=== PATIENT | female | born 1990 | race Caucasian/White ===

== ENCOUNTER 2017-12-29 08:23 | Emergency (ER) | payer OTHER ==
[~2017-12-29] VITALS: Ht 167.6 cm; Wt 76.0 kg
[2017-12-29 09:07] VITALS: BP 122/76
[2017-12-29 09:34] LABS: EOSINOPHILS % 3.9 % (0.0-5.0); HEMATOCRIT. 38.9 % (36.0-48.0); HEMOGLOBIN. 12.9 g/dL (12.0-16.0); LYMPHOCYTES % 26.1 % (20.0-50.0); MEAN CORPUSCULAR HEMOGLOBIN 27.9 pg (28.0-32.0); MEAN CORPUSCULAR VOLUME 83.9 fL (81.0-99.0); MEAN PLATELET VOLUME 7.8 fl (7.4-10.4); MONOCYTES % 8.7 % (2.0-8.0); NEUTROPHILS % 60.3 % (40.0-76.0); PLATELET 242 x1000/uL (130-400); RED BLOOD CELL COUNT 4.63 mill/uL (4.2-5.4); RED CELL DISTRIBUTION WIDTH 13.7 % (11.6-14.6)
[2017-12-29 09:41] LABS: CHLORIDE 111 mEq/L (98-107)
[2017-12-29 09:43] LABS: *AMPHETAMINES SCREEN URINE NEGATIVE (NEGATIVE); *BARBITURATES SCREEN URINE NEGATIVE (NEGATIVE); *COCAINE SCREEN URINE NEGATIVE (NEGATIVE)
[2017-12-29 09:44] LABS: ETHANOL BLOOD < 10 mg/dL
[2017-12-29 09:44] LABS: *BENZODIAZEPINES SCREEN URINE NEGATIVE (NEGATIVE); CANNABINOID URINE SCREEN NEGATIVE (NEGATIVE); METHADONE URINE SCREEN NEGATIVE (NEGATIVE); OPIATES URINE SCREEN NEGATIVE (NEGATIVE); PHENCYCLIDINE URINE SCREEN NEGATIVE (NEGATIVE)
[2017-12-29 10:00] LABS: HCG SCREEN NEGATIVE
== END 2017-12-29 10:38 | disposition left against medical advice (07) ==
LOC: ER 08:23
DX: F43.9 Reaction to severe stress, unspecified (principal); J45.909 Unspecified asthma, uncomplicated
CPT/HCPCS: 36415; 80048; 80305; 80307; 80329; 84703; 85025; 99284; G0482

== ENCOUNTER 2018-02-28 04:34 | Emergency (ER) | payer OTHER ==
[~2018-02-28] VITALS: Ht 162.6 cm; Wt 81.0 kg
[2018-02-28] MEDS ORDERED: ACETAMINOPHEN 325MG TABLET PO ONE (06:30)
[2018-02-28] MEDS ORDERED: FLUORESCEIN SODIUM 1MG/STRIP RIGHTEYE ONE (06:30)
[2018-02-28 08:00] VITALS: BP 115/61
== END 2018-02-28 08:00 | disposition home or self-care (01) ==
LOC: ER 04:34
DX: S00.11XA Contusion of right eyelid and periocular area, initial encounter (principal); J45.909 Unspecified asthma, uncomplicated; Y08.89XA Assault by other specified means, initial encounter; Y92.9 Unspecified place or not applicable
CPT/HCPCS: 99283

== ENCOUNTER 2018-10-25 21:37 | Emergency (ER) | payer OTHER ==
[~2018-10-25] VITALS: Ht 162.6 cm; Wt 85.0 kg
[2018-10-26 00:17] VITALS: BP 114/79
== END 2018-10-26 00:17 | disposition home or self-care (01) ==
LOC: ER 21:37
DX: J06.9 Acute upper respiratory infection, unspecified (principal); J00 Acute nasopharyngitis [common cold]; J45.909 Unspecified asthma, uncomplicated
CPT/HCPCS: 81025; 99283

== ENCOUNTER 2019-01-07 11:27 | Emergency (ER) | payer SELFPAY ==
[~2019-01-07] VITALS: Ht 162.6 cm; Wt 84.0 kg
[2019-01-07 11:33] VITALS: BP 143/77
== END 2019-01-07 13:30 | disposition home or self-care (01) ==
LOC: ER 11:27
DX: S93.402A Sprain of unspecified ligament of left ankle, initial encounter (principal); J45.909 Unspecified asthma, uncomplicated; W10.8XXA Fall (on) (from) other stairs and steps, initial encounter; Y93.89 Activity, other specified; Y92.018 Other place in single-family (private) house as the place of occurrence of the external cause
CPT/HCPCS: 73610; 81025; 99283

== ENCOUNTER 2019-07-03 06:19 | Inpatient (IN) | payer MEDICAID ==
[~2019-07-03] VITALS: Ht 162.6 cm; Wt 90.7 kg
[2019-07-03 07:20] LABS: CLARITY URINE CLOUDY (CLEAR); COLOR URINE DARK YELLOW (YELLOW); KETONES URINE TRACE (NEGATIVE); LEUKOCYTE ESTERASE URINE NEGATIVE (NEGATIVE); NITRITE URINE NEGATIVE (NEGATIVE); OCCULT BLOOD URINE 3+ (NEGATIVE); PROTEIN URINE 1+ (NEGATIVE); SPECIFIC GRAVITY URINE 1.031 (1.005-1.030)
[2019-07-03 10:04] LABS: BASOPHILS % 0.4 % (0.0-2.0); EOSINOPHILS % 0.6 % (0.0-5.0); HEMATOCRIT. 40.2 % (36.0-48.0); HEMOGLOBIN. 13.4 g/dL (12.0-16.0); LYMPHOCYTES % 19.1 % (20.0-50.0); MEAN CORPUSCULAR HEMOGLOBIN 28.2 pg (28.0-32.0); MEAN CORPUSCULAR VOLUME 84.6 fL (81.0-99.0); NEUTROPHILS % 65.9 % (40.0-76.0); PLATELET 193 x1000/uL (130-400); RED BLOOD CELL COUNT 4.75 mill/uL (4.2-5.4); RED CELL DISTRIBUTION WIDTH 13.4 % (11.6-14.6)
[2019-07-03 10:09] LABS: CHLORIDE 107 mEq/L (98-107)
[2019-07-03 10:20] LABS: B-HCG QUANTITATIVE 687 mIU/mL (<3)
[2019-07-03] MEDS ORDERED: BUPIVACAINE HCL 0.5% (5MG/ML) 50ML ONE (14:20)
[2019-07-03] MEDS ORDERED: TERBUTALINE SULFATE 1MG/ML VIAL ONE (19:02)
[2019-07-03] MEDS ORDERED: FENTANYL CITRATE/PF 50MCG/ML 2ML VIAL ONE ×2 (19:08→20:28)
[2019-07-03] MEDS ORDERED: MIDAZOLAM HCL 2 MG/2 ML VIAL ONE (19:08)
[2019-07-03] MEDS ORDERED: ROCURONIUM BROMIDE 10MG/ML VIAL 5ML IV ONE (19:09)
[2019-07-03] MEDS ORDERED: PROPOFOL 200MG/20ML VIAL IV ONE (19:12)
[2019-07-03] MEDS ORDERED: CEFAZOLIN SODIUM 1000MG/VIAL ONE (19:22)
[2019-07-03] MEDS ORDERED: SODIUM CHLORIDE 0.9% 10ML VIAL ONE (19:22)
[2019-07-03] MEDS ORDERED: HYDROCORTISONE SOD SUCCINATE 100 MG/2 ML VIAL ONE (19:27)
[2019-07-03] MEDS ORDERED: ONDANSETRON HCL 4MG/2ML INJ ONE (20:19)
[2019-07-03] MEDS ORDERED: METOCLOPRAMIDE HCL 10MG/2ML VIAL ONE (20:19)
[2019-07-03] MEDS ORDERED: HYDROMORPHONE HCL/PF 2MG/ML (OR) ONE (20:57)
[2019-07-03] MEDS: HYDROMORPHONE HCL/PF 2MG/ML CPJ IV PRN ×4 (20:58→21:39)
[2019-07-03] MEDS ORDERED: ACETAMINOPHEN 650MG SUPP PR PRN (21:45)
[2019-07-03 22:30] VITALS: BP 122/73
[2019-07-04] VITALS: BP 106/69
[2019-07-04 04:51] VITALS: BP 105/65
[2019-07-04] MEDS: MORPHINE SULFATE 2 MG/ML CPJ (NOT FOR IM USE) IV PRN ×2 (05:22→20:34)
[2019-07-04 07:32] LABS: BASOPHILS % 0.1 % (0.0-2.0); HEMATOCRIT. 36.8 % (36.0-48.0); HEMOGLOBIN. 12.2 g/dL (12.0-16.0); LYMPHOCYTES % 8.8 % (20.0-50.0); MEAN CORPUSCULAR VOLUME 84.7 fL (81.0-99.0); MEAN PLATELET VOLUME 8.4 fl (7.4-10.4); MONOCYTES % 5.5 % (2.0-8.0); NEUTROPHILS % 85.6 % (40.0-76.0); PLATELET 194 x1000/uL (130-400); RED BLOOD CELL COUNT 4.35 mill/uL (4.2-5.4); RED CELL DISTRIBUTION WIDTH 13.1 % (11.6-14.6)
[2019-07-04 07:36] LABS: CHLORIDE 107 mEq/L (98-107)
[2019-07-04] MEDS: IBUPROFEN 800MG TABLET PO PRN (09:53)
[2019-07-04 20:00] VITALS: BP 108/68
[2019-07-05] VITALS: BP 112/78
[2019-07-05] MEDS: IBUPROFEN 800MG TABLET PO PRN (00:22)
[2019-07-05 04:00] VITALS: BP 110/59
[2019-07-05 08:00] VITALS: BP 106/69
[2019-07-05 13:22] VITALS: BP 123/89
== END 2019-07-05 13:55 | disposition home or self-care (01) | DRG 545 ==
LOC: ER 06:47 → 6EST 11:59 → ENRESERV 14:11
PROVIDERS: ADMIT Obstetrics & Gynecology; ATTEND Obstetrics & Gynecology
PROC: 10T20ZZ Resection of Products of Conception, Ectopic, Open Approach (ICD-10-PCS; principal; 2019-07-03)
PROC: 0UB50ZZ Excision of Right Fallopian Tube, Open Approach (ICD-10-PCS; 2019-07-03)
DX: O00.101 Right tubal pregnancy without intrauterine pregnancy (principal); K66.1 Hemoperitoneum; J45.909 Unspecified asthma, uncomplicated; O26.891 Other specified pregnancy related conditions, first trimester; O99.511 Diseases of the respiratory system complicating pregnancy, first trimester; Z3A.01 Less than 8 weeks gestation of pregnancy
CPT/HCPCS: 36415; 76801; 80048; 80053; 81003; 84702; 85025; 86850; 86900; 88302; 88305; 96374; 99291; J0690; J1170; J1720; J2250; J2270; J2405; J2704; J2765; J3010; J3105; J3490

== ENCOUNTER 2019-07-12 09:20 | Emergency (ER) | payer MEDICAID, OTHER ==
[~2019-07-12] VITALS: Ht 162.6 cm; Wt 91.0 kg
[2019-07-12 12:45] VITALS: BP 123/68
== END 2019-07-12 13:19 | disposition home or self-care (01) ==
LOC: ER 09:20
DX: Z48.02 Encounter for removal of sutures (principal); J45.909 Unspecified asthma, uncomplicated; Z98.890 Other specified postprocedural states
CPT/HCPCS: 99281

== ENCOUNTER 2019-10-26 22:43 | Emergency (ER) | payer MEDICAID ==
[~2019-10-26] VITALS: Ht 162.6 cm; Wt 90.0 kg
[2019-10-26 22:51] VITALS: BP 123/66
[2019-10-26] MEDS ORDERED: PREDNISONE 20MG TABLET PO STA (22:58)
[2019-10-26] MEDS ORDERED: ALBUTEROL (0.083%) 2.5MG/3ML NEB HHN STA (22:58)
[2019-10-26] MEDS ORDERED: IPRATROPIUM BROMIDE (0.02%) 0.5MG/2.5ML NEB HHN STA (22:58)
== END 2019-10-27 00:30 | disposition home or self-care (01) ==
LOC: ER 22:43
DX: J45.909 Unspecified asthma, uncomplicated (principal); Z98.890 Other specified postprocedural states
CPT/HCPCS: 94640; 99283; J7512; Z7610